=== PATIENT | female | born 1935 | race Caucasian/White ===

== ENCOUNTER 2023-06-13 20:40 | Emergency (ER) | payer OTHER, MEDICAID ==
[~2023-06-13] VITALS: Ht 160 cm; Wt 72.6 kg
[2023-06-13 20:40] VITALS: BP 144/72; PULSE 76; RESP 17; TEMP 98.2; O2SAT 95
--- NOTE | 2023-06-13 20:40 | NUR ---
TO BED , BIBA WITH C/O LEFT EYE D/C FROM [facility]
--- NOTE | 2023-06-13 20:52 | NUR ---
SPOKE WITH PATIENT AT BEDSIDE WHO COMPLAINS OF WATERY RIGHT EYE, AND HAS LEFT EYE DISCHARGE. PATIENT REPORTS THAT EYE WAS STUCK TOGETHER AND SHE HAD TO OPEN IT HERSELF. PATIENT DENIES PAIN. PMH: HTN, GLAUCOMA
--- NOTE | 2023-06-13 21:12 | NUR ---
Patient being evaluated by physician at bedside.
[2023-06-13] MEDS ORDERED: ERYT5OIN58 OP (21:16)
[2023-06-13] MEDS ORDERED: ERYTHROMYCIN 0.5% OPTH OINT 1 GM TUBE OP ONE (21:20)
[2023-06-13 22:36] VITALS: BP 144/72; PULSE 76; RESP 17; TEMP 98.2; O2SAT 95
--- NOTE | 2023-06-13 22:36 | NUR ---
Patient discharged with v/s stable. Written and verbal after care instructions given and explained. Patient alert, oriented and verbalized understanding of instructions. Wheel Chair Assisted to car. All questions addressed prior to discharge. ID band removed. Patient advised to follow up with PMD. Rx of ERTHYROMYCIN given. Patient educated on indication of medication including possible reaction and side effects. Opportunity to ask questions provided and answered. DX: BACTERIAL CONJUNCTIVITIS, ADULT
--- NOTE | 2023-06-13 22:50 | NUR ---
RECEIVED PHONE CALL FROM FACILITY WHERE PATIENT RESIDES AFTER PATIENT WAS DISCHARGED AND LEFT THIS HOSPITAL. NURSE STATES THAT MD WILL NOT ACCEPT PATIENT BACK WITHOUT STROKE WORK UP. INFORMED NURSE THAT PATIENT WAS ONLY TREATED FOR HER COMPLAINT OF EYE DISCHARGE, INFORMED NURSE THAT ALL INFORMATION RECIEVED UPON INTAKE DID NOT MENTION THAT PATIENT HAD SYNCOPAL EVENT AND MD WANTED TO R/O STROKE EXPLAINED TO NURSE THAT [facility] IS NOT A STROKE CENTER, NURSE STATES THE FACILITY INFORMED THE AMBULANCE TRANSPORT THAT PATIENT REQUIRED EVALUATION FOR POSSIBLE STROKE AND WAS ASKED TO TRANSPORT PATIENT TO [facility], PROVIDER NAME OF AMBULANCE TRANSPORT THAT BROUGHT PATIENT TO [facility] AND ADVISED NURSE THAT PATIENT WILL NEED TO BE EVALUATED AT A STROKE CENTER.
== END 2023-06-13 22:36 | disposition home or self-care (01) ==
LOC: MED 20:40
DX: H10.89 Other conjunctivitis (principal); B96.89 Other specified bacterial agents as the cause of diseases classified elsewhere; I10 Essential (primary) hypertension; E03.9 Hypothyroidism, unspecified; E78.00 Pure hypercholesterolemia, unspecified; Z79.899 Other long term (current) drug therapy
CPT/HCPCS: 99283